=== PATIENT | male | born 1990 | race Caucasian/White ===

== ENCOUNTER 2024-04-05 10:21 | Outpatient (AMB) | payer OTHER, SELFPAY ==
--- NOTE | 2024-04-05 10:37 | A.OFFVIS_ITS ---
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 Patient reports that he was training for a run when he noticed soreness at the bottom of his foot, he pushed through the soreness and ran a 5k this Thursday. He was seen at an urgent care and was referred to orthopedics. His discomfort has improved however he continues to have soreness in the bottom of his heel and achilles area. States he is slowly improving and has been applying more weight to his foot. 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 He reports he noticed soreness at the bottom of his foot while he was training for a run however, he pushed through the soreness and ran 5 km, 04/02/24. He was seen at urgent care where he was referred to our office. He currently states he has improvement in his discomfort however he continues to have soreness at the bottom of his heel and Achilles area. He has been slowly able to apply more weight to his foot with improvement. 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 [facility] Surgical History (Updated 04/05/24 @ 10:43 by HEMANT Jasso) Hx of neck surgery Social History (Updated 04/05/24 @ 10:43 by HEMANT Jasso) Patient Tobacco Use Status: Never used Tobacco Current occupational status: employed Current occupation: dispensary Review of Systems Const All systems reviewed & are unremarkable except as noted in HPI and below Physical Exam Vital Signs: BMI result Body Mass Index 22.0 Const General: cooperative, healthy appearing, comfortable, no acute distress, well developed and alert Orientation/consciousness: patient oriented x3 HEENT Head: Yes normal to inspection, Yes normocephalic and Yes atraumatic Eyes General: appearance normal, both eyes and all related structures Resp Effort & Inspection: normal respiratory effort and able to speak in complete sentences Cardio Rate: regular rate Peripheral pulses: Peripheral pulses 2+ throughout GI Palpation (GI): Soft to palpation Skin Lesions: no lesions Rashes: no rashes Neuro General: patient oriented x3 Extrem Other: Right foot: Normal to inspection. He has no tenderness over the medial or lateral malleolus or Anterior tibia. He does have discomfort at the base of the heel. No bruising, no decreased sensation. NVI throughout. Results Reviewed Results Reviewed: Xrays were obtained in the office today and personally reviewed by me of the right ankle are negative for obvious fracture, dislocation or bony abnormality. Assessment & Plan Assessment & Plan (1) Tendonitis of foot: Code(s): M77.50 - Other enthesopathy of unspecified foot and ankle Category: Medical Plan It appears that he has developed an overuse injury from overtraining therefore I would like to him to placed short boot which he will wear for 2 weeks to allow the foot to rest. I also placed him in a course of physical therapy to work on strengthening and stretching. I did recommend he takes break from running for 2 weeks and then increase activity as tolerated with guidance from physical therapy. If symptoms persist or worsens, patient will contact the office and we can order an MRI, otherwise follow-up as needed. Orders: Orders PT Evaluation and Treatment Today M77.50 - Other enthesopathy of unspecified foot and ankle XR ankle RT min 3V Today M25.571 - Pain in right ankle and joints of right foot Patient Instructions: Scribed for Teto Crabtree PA-C, by Chapin Sosa medical education coordinator, on 04/05/2024 at 10:15 AM EST.? I, Teto Crabtree PA-C, have personally reviewed and agree with the information entered by the scribe. Coding Level of Care Code New Pt Level 3 (13157) Diagnoses Tendonitis of foot M77.50
[2024-04-05 10:43] VITALS: BMI 22.0
== END 2024-04-05 11:14 | disposition home or self-care (01) ==
LOC: HO.HOS 10:21
PROVIDERS: Visit Provider Physician Assistant
DX: M77.51 Other enthesopathy of right foot and ankle (principal)
CPT/HCPCS: 99203

== ENCOUNTER 2024-04-05 15:24 | Outpatient (REF) | payer OTHER, SELFPAY ==
--- NOTE | ~2024-04-05 | XR_ITS ---
EXAMINATION: XR ANKLE, RIGHT CLINICAL INFORMATION: Pain in right ankle and joints of right foot. COMPARISON: None available. TECHNIQUE: AP, lateral, and mortise views of the right ankle. FINDINGS: Bone mineralization is normal. Ankle mortise is maintained. No displaced fracture appreciated. No significant soft tissue swelling. XR/XR ankle RT min 3V IMPRESSION: No displaced fracture. Recommend follow up imaging in 10-14 days if fracture is suspected.
== END 2024-04-05 15:25 | disposition home or self-care (01) ==
LOC: HO.HOSX 15:24
PROVIDERS: Visit Provider Physician Assistant
DX: M77.51 Other enthesopathy of right foot and ankle (principal)
CPT/HCPCS: 73610; 99202